=== PATIENT | female | born 1940 | race African-American/Black ===

== ENCOUNTER 2018-01-04 13:33 | Emergency (ER) | payer MEDICARE, BC ==
[~2018-01-04] VITALS: Ht 162.6 cm; Wt 58.0 kg
[2018-01-04] MEDS ORDERED: METHYLPREDNISOLONE SOD SUCC 125 MG/2 ML VIAL IV STA (16:43)
[2018-01-04] MEDS ORDERED: LEVOFLOXACIN 750MG PREMIX 150 ML IV ONE (16:45)
[2018-01-04] MEDS ORDERED: IPRATROPIUM/ALBUTEROL 0.5-3(2.5)MG/3ML NEB HHN ONE (16:45)
[2018-01-04 17:31] LABS: BASOPHILS % 1.2 % (0.0-2.0); EOSINOPHILS % 6.2 % (0.0-5.0); HEMATOCRIT. 40.6 % (36.0-48.0); HEMOGLOBIN. 13.5 g/dL (12.0-16.0); LYMPHOCYTES % 30.4 % (20.0-50.0); MEAN CORPUSCULAR HEMOGLOBIN 29.6 pg (28.0-32.0); MEAN CORPUSCULAR VOLUME 89.1 fL (81.0-99.0); MEAN PLATELET VOLUME 7.6 fl (7.4-10.4); MONOCYTES % 12.3 % (2.0-8.0); NEUTROPHILS % 49.9 % (40.0-76.0); PLATELET 414 x1000/uL (130-400); RED BLOOD CELL COUNT 4.56 mill/uL (4.2-5.4); RED CELL DISTRIBUTION WIDTH 16.1 % (11.6-14.6)
[2018-01-04 17:37] LABS: PARTIAL THROMBOPLASTIN TIME 27.5 sec (23.4-31.0); PROTHROMBIN TIME 10.7 sec (9.4-11.6)
[2018-01-04 17:38] LABS: CHLORIDE 92 mEq/L (98-107)
[2018-01-04 17:46] LABS: TROPONIN I < 0.02 ng/mL (0.00-0.04)
[2018-01-04 20:15] VITALS: BP 147/89
== END 2018-01-04 20:52 | disposition home or self-care (01) ==
LOC: ER 17:35
DX: J44.9 Chronic obstructive pulmonary disease, unspecified (principal); I10 Essential (primary) hypertension; F17.200 Nicotine dependence, unspecified, uncomplicated; Z98.890 Other specified postprocedural states
CPT/HCPCS: 36415; 71045; 80053; 83605; 83690; 84484; 85025; 85610; 85730; 87040; 94640; 96365; 96375; 99285; J1956; J2930; J7620

== ENCOUNTER 2018-08-17 13:16 | Inpatient (IN) | payer MEDICARE, BC ==
[~2018-08-17] VITALS: Ht 162.6 cm; Wt 68.0 kg
[~2018-08-17 13:16] MED LIST: AMLO10TA80 PO; ENAL20TA PO
[2018-08-17 14:56] LABS: HEMATOCRIT. 40.6 % (36.0-48.0); HEMOGLOBIN. 12.3 g/dL (12.0-16.0); MEAN CORPUSCULAR HEMOGLOBIN 22.8 pg (28.0-32.0); MEAN CORPUSCULAR VOLUME 75.3 fL (81.0-99.0); MEAN PLATELET VOLUME 7.7 fl (7.4-10.4); PLATELET 305 x1000/uL (130-400); RED CELL DISTRIBUTION WIDTH 21.4 % (11.6-14.6)
[2018-08-17 15:06] LABS: CHLORIDE 93 mEq/L (98-107)
[2018-08-17 15:08] LABS: INR 1.2; PROTHROMBIN TIME 11.7 sec (9.1-11.1)
[2018-08-17 15:36] LABS: BG BASE EXCESS -1.2 mmol/L (-2.0-2.0); BG DEOXYHEMOGLOBIN 12.6 % (0.0-5.0); BG FRACTION INSPIRED OXYGEN 40; BG HCO3 ACT 27.7 mmol/L (22.0-26.0); BG METHEMOGLOBIN 0.4 % (0.0-1.5); BG OXYGEN SATURATION 86.8 % (92.0-98.5); BG PH 7.235 (7.350-7.450); BG PO2 60.6 mmHg (75.0-100.0); BG SAMPLE SITE RIGHT RADIAL; BG TOTAL HEMOGLOBIN 13.1 g/dL (12.0-18.0); BG VENT MODE MASK - SIMPLE
[2018-08-17] MEDS ORDERED: ALBUTEROL (0.083%) 2.5MG/3ML NEB HHN STA (15:41)
[2018-08-17] MEDS ORDERED: LEVOFLOXACIN 750MG PREMIX 150 ML IV ONE (15:45)
[2018-08-17 15:59] LABS: PLATELET ESTIMATE NORMAL
[2018-08-17 17:51] VITALS: BP 91/54
[2018-08-17 18:00] VITALS: BP 105/64
[2018-08-17] MEDS ORDERED: ACETAMINOPHEN 650MG SUPP PR PRN (18:45)
[2018-08-17] MEDS ORDERED: DIPHENHYDRAMINE 50MG/ML VIAL IV PRN (18:45)
[2018-08-17] MEDS ORDERED: CLONIDINE 0.1MG TABLET PO PRN (18:45)
[2018-08-17] MEDS ORDERED: IPRATROPIUM/ALBUTEROL 0.5-3(2.5)MG/3ML NEB HHN PRN (18:45)
[2018-08-17] MEDS ORDERED: NA PHOS,M-B/NA PHOS,DI-BA ENEMA 118ML PR PRN (18:45)
[2018-08-17] MEDS ORDERED: ACETAMINOPHEN 325MG TABLET PO PRN (18:45)
[2018-08-17] MEDS ORDERED: IPRATROPIUM/ALBUTEROL 0.5-3(2.5)MG/3ML NEB INH PRN (18:45)
[2018-08-17] MEDS ORDERED: LORAZEPAM 2MG/ML CPJ IV PRN (18:45)
[2018-08-17] MEDS ORDERED: MAGNESIUM/ALUMINUM HYDROXIDE/SIMETHICONE 30ML UDC PO PRN (18:45)
[2018-08-17] MEDS ORDERED: HYDROCODONE/ACETAMINOPHEN 5/325MG TABLET PO PRN (18:45)
[2018-08-17] MEDS ORDERED: METHYLPREDNISOLONE SOD SUCC 125 MG/2 ML VIAL IV SCH (18:45)
[2018-08-17 20:00] VITALS: BP 106/58
[2018-08-17] MEDS ORDERED: LEVOFLOXACIN 500MG PREMIX 100 ML IV NR (20:30)
[2018-08-17] MEDS: ENOXAPARIN 40MG/0.4ML SYR SUBCUT SCH (20:37)
[2018-08-17] MEDS: FUROSEMIDE 40MG/4ML VIAL IVP SCH (20:39)
[2018-08-17] MEDS: FAMOTIDINE 20MG/2ML VIAL IV SCH (20:39)
[2018-08-17] MEDS: ASPIRIN 81MG TABLET PO SCH (20:39)
[2018-08-17] MEDS: MONTELUKAST SODIUM 10MG TABLET PO SCH (20:39)
[2018-08-17] MEDS: METHYLPREDNISOLONE SOD SUCC 40 MG/ML VIAL IV SCH (20:40)
[2018-08-17] MEDS: DEXT 5%/0.9% NACL 1,000 ML IV SCH (20:44)
[2018-08-17 22:00] VITALS: BP 123/85
[2018-08-17] MEDS: IPRATROPIUM/ALBUTEROL 0.5-3(2.5)MG/3ML NEB HHN SCH (22:08)
[2018-08-17 22:43] LABS: BG BASE EXCESS -0.5 mmol/L (-2.0-2.0); BG BILEVEL POS AIRWAY PRESSURE 10/5D; BG CARBOXYHEMOGLOBIN 2.6 % (0.5-1.5); BG DEOXYHEMOGLOBIN 7.8 % (0.0-5.0); BG FRACTION INSPIRED OXYGEN 50; BG HCO3 ACT 29.1 mmol/L (22.0-26.0); BG METHEMOGLOBIN 0.4 % (0.0-1.5); BG OXYHEMOGLOBIN 89.2 % (94.0-97.0); BG PCO2 74.3 mmHg (35.0-45.0); BG PH 7.211 (7.350-7.450); BG PO2 75.4 mmHg (75.0-100.0); BG SAMPLE SITE LEFT BRACHIAL; BG TIDAL VOLUME(mL) 274 mL; BG TOTAL HEMOGLOBIN 12.7 g/dL (12.0-18.0); BG VENT MODE MASK - BIPAP; BG VENT RATE 14 set
[2018-08-18] VITALS (14 sets, daily range): BP systolic 92–133; BP diastolic 55–92
[2018-08-18] MEDS: IPRATROPIUM/ALBUTEROL 0.5-3(2.5)MG/3ML NEB HHN SCH ×6 (01:19→21:41)
[2018-08-18 04:08] LABS: CLARITY URINE CLEAR (CLEAR); COLOR URINE YELLOW (YELLOW); KETONES URINE NEGATIVE (NEGATIVE); LEUKOCYTE ESTERASE URINE NEGATIVE (NEGATIVE); NITRITE URINE NEGATIVE (NEGATIVE); OCCULT BLOOD URINE TRACE (NEGATIVE); PH URINE 5.5 (4.5-8.0); PROTEIN URINE NEGATIVE (NEGATIVE); SPECIFIC GRAVITY URINE 1.014 (1.005-1.030); UROBILINOGEN URINE 0.2 E.U./dL (0.2-1.0)
[2018-08-18 04:46] LABS: *AMPHETAMINES SCREEN URINE NEGATIVE (NEGATIVE); *BARBITURATES SCREEN URINE NEGATIVE (NEGATIVE); *BENZODIAZEPINES SCREEN URINE NEGATIVE (NEGATIVE)
[2018-08-18 04:48] LABS: *COCAINE SCREEN URINE NEGATIVE (NEGATIVE); CANNABINOID URINE SCREEN NEGATIVE (NEGATIVE); METHADONE URINE SCREEN NEGATIVE (NEGATIVE); OPIATES URINE SCREEN NEGATIVE (NEGATIVE); PHENCYCLIDINE URINE SCREEN NEGATIVE (NEGATIVE)
[2018-08-18] MEDS: METHYLPREDNISOLONE SOD SUCC 40 MG/ML VIAL IV SCH ×3 (05:14→20:53)
[2018-08-18 07:20] LABS: HEMATOCRIT. 38.9 % (36.0-48.0); HEMOGLOBIN. 11.7 g/dL (12.0-16.0); MEAN CORPUSCULAR HEMOGLOBIN 22.5 pg (28.0-32.0); MEAN CORPUSCULAR VOLUME 75.1 fL (81.0-99.0); MEAN PLATELET VOLUME 8.2 fl (7.4-10.4); PLATELET 291 x1000/uL (130-400); RED BLOOD CELL COUNT 5.18 mill/uL (4.2-5.4)
[2018-08-18 08:06] LABS: CHLORIDE 91 mEq/L (98-107)
[2018-08-18 08:31] LABS: HDL CHOLESTEROL 33 mg/dL (40-59); LDL CHOLESTEROL 68 mg/dL (5-100); T4 FREE 1.27 ng/dL (0.76-1.46)
[2018-08-18] MEDS: LORATADINE 10MG TABLET PO SCH (09:20)
[2018-08-18] MEDS: ASPIRIN 81MG TABLET PO SCH (09:20)
[2018-08-18] MEDS: FAMOTIDINE 20MG/2ML VIAL IV SCH (09:20)
[2018-08-18] MEDS: FUROSEMIDE 40MG/4ML VIAL IVP SCH ×2 (09:20→20:53)
[2018-08-18 10:23] LABS: BG BASE EXCESS 5.7 mmol/L (-2.0-2.0); BG BILEVEL POS AIRWAY PRESSURE 18/5; BG CARBOXYHEMOGLOBIN 1.7 % (0.5-1.5); BG DEOXYHEMOGLOBIN 6.4 % (0.0-5.0); BG HCO3 ACT 35.8 mmol/L (22.0-26.0); BG METHEMOGLOBIN 0.5 % (0.0-1.5); BG OXYGEN SATURATION 93.5 % (92.0-98.5); BG OXYHEMOGLOBIN 91.4 % (94.0-97.0); BG PCO2 85.2 mmHg (35.0-45.0); BG PH 7.241 (7.350-7.450); BG PO2 76.8 mmHg (75.0-100.0); BG SAMPLE SITE RIGHT RADIAL; BG TOTAL HEMOGLOBIN 12.6 g/dL (12.0-18.0); BG VENT MODE MASK - BIPAP; BG VENT RATE 14 set
[2018-08-18] MEDS ORDERED: LIDOCAINE HCL/PF 1% 2ML VIAL ONE (10:23)
[2018-08-18 12:04] LABS: BG BASE EXCESS 4.2 mmol/L (-2.0-2.0); BG BILEVEL POS AIRWAY PRESSURE 18/5; BG CARBOXYHEMOGLOBIN 1.7 % (0.5-1.5); BG DEOXYHEMOGLOBIN 1.9 % (0.0-5.0); BG FRACTION INSPIRED OXYGEN 80; BG HCO3 ACT 34.3 mmol/L (22.0-26.0); BG METHEMOGLOBIN 0.5 % (0.0-1.5); BG OXYGEN SATURATION 98.1 % (92.0-98.5); BG OXYHEMOGLOBIN 95.9 % (94.0-97.0); BG PCO2 84.8 mmHg (35.0-45.0); BG PH 7.225 (7.350-7.450); BG PO2 119.7 mmHg (75.0-100.0); BG SAMPLE SITE LEFT RADIAL; BG TOTAL HEMOGLOBIN 12.3 g/dL (12.0-18.0); BG VENT MODE MASK - BIPAP
[2018-08-18 14:18] LABS: NUCLEATED RED BLOOD CELLS 3 /100 WBC; PLATELET ESTIMATE NORMAL
[2018-08-18] MEDS: DEXT 5%/0.9% NACL 1,000 ML IV SCH (15:03)
[2018-08-18] MEDS: MONTELUKAST SODIUM 10MG TABLET PO SCH (18:30)
[2018-08-18] MEDS: ENOXAPARIN 40MG/0.4ML SYR SUBCUT SCH (20:53)
[2018-08-18] MEDS: LEVOFLOXACIN 250MG PREMIX 50 ML IV SCH (21:00)
[2018-08-18] MEDS: BUDESONIDE 0.5MG/2ML NEB HHN SCH (21:40)
[2018-08-18 22:11] LABS: BG BASE EXCESS 7.5 mmol/L (-2.0-2.0); BG CARBOXYHEMOGLOBIN 1.5 % (0.5-1.5); BG DEOXYHEMOGLOBIN 14.7 % (0.0-5.0); BG FRACTION INSPIRED OXYGEN 36; BG HCO3 ACT 35.5 mmol/L (22.0-26.0); BG METHEMOGLOBIN 0.2 % (0.0-1.5); BG OXYHEMOGLOBIN 83.6 % (94.0-97.0); BG PCO2 67.9 mmHg (35.0-45.0); BG PH 7.336 (7.350-7.450); BG SAMPLE SITE RIGHT RADIAL; BG TOTAL HEMOGLOBIN 12.2 g/dL (12.0-18.0); BG VENT MODE NASAL CANNULA
[2018-08-19] VITALS (13 sets, daily range): BP systolic 112–164; BP diastolic 57–132
[2018-08-19] MEDS: IPRATROPIUM/ALBUTEROL 0.5-3(2.5)MG/3ML NEB HHN SCH ×6 (01:20→21:12)
[2018-08-19] MEDS: METHYLPREDNISOLONE SOD SUCC 40 MG/ML VIAL IV SCH ×3 (04:47→20:06)
[2018-08-19 07:28] LABS: HEMATOCRIT 36.7 % (36.0-48.0); MEAN CORPUSCULAR HEMOGLOBIN 22.6 pg (28.0-32.0); MEAN CORPUSCULAR VOLUME 75.3 fL (81.0-99.0); PLATELET 257 x1000/uL (130-400); RED BLOOD CELL COUNT 4.88 mill/uL (4.2-5.4); RED CELL DISTRIBUTION WIDTH 21.7 % (11.6-14.6)
[2018-08-19] MEDS: BUDESONIDE 0.5MG/2ML NEB HHN SCH ×2 (08:05→21:12)
[2018-08-19] MEDS: FAMOTIDINE 20MG/2ML VIAL IV SCH (08:24)
[2018-08-19] MEDS: LORATADINE 10MG TABLET PO SCH (08:24)
[2018-08-19] MEDS: FUROSEMIDE 40MG/4ML VIAL IVP SCH ×2 (08:25→20:06)
[2018-08-19] MEDS: DOCUSATE SODIUM 100MG CAPSULE PO PRN (08:25)
[2018-08-19] MEDS: ASPIRIN 81MG TABLET PO SCH (08:25)
[2018-08-19] MEDS: GUAIFENESIN 200MG/10ML SUGAR FREE UDC PO PRN (08:42)
[2018-08-19 11:04] LABS: CHLORIDE 92 mEq/L (98-107)
[2018-08-19] MEDS ORDERED: MAGNESIUM 1 G PREMIX 100 ML IV NR (12:00)
[2018-08-19] MEDS ORDERED: IOHEXOL-350 100 ML BOTTLE ONE (14:00)
[2018-08-19] MEDS: MONTELUKAST SODIUM 10MG TABLET PO SCH (17:49)
[2018-08-19] MEDS: LEVOFLOXACIN 250MG PREMIX 50 ML IV SCH (20:07)
[2018-08-19] MEDS: ENOXAPARIN 40MG/0.4ML SYR SUBCUT SCH (20:07)
[2018-08-20] VITALS (10 sets, daily range): BP systolic 127–137; BP diastolic 66–94
[2018-08-20] MEDS: METHYLPREDNISOLONE SOD SUCC 40 MG/ML VIAL IV SCH ×2 (04:30→12:32)
[2018-08-20] MEDS: IPRATROPIUM/ALBUTEROL 0.5-3(2.5)MG/3ML NEB HHN SCH ×5 (05:34→15:50)
[2018-08-20 07:11] LABS: HEMATOCRIT 39.4 % (36.0-48.0); HEMOGLOBIN 11.7 g/dL (12.0-16.0); MEAN CORPUSCULAR HEMOGLOBIN 22.2 pg (28.0-32.0); PLATELET 267 x1000/uL (130-400); RED BLOOD CELL COUNT 5.26 mill/uL (4.2-5.4); RED CELL DISTRIBUTION WIDTH 20.8 % (11.6-14.6)
[2018-08-20 07:15] LABS: CHLORIDE 89 mEq/L (98-107)
[2018-08-20] MEDS: BUDESONIDE 0.5MG/2ML NEB HHN SCH (08:32)
[2018-08-20] MEDS: ASPIRIN 81MG TABLET PO SCH (08:59)
[2018-08-20] MEDS: FUROSEMIDE 40MG/4ML VIAL IVP SCH (08:59)
[2018-08-20] MEDS: GUAIFENESIN 200MG/10ML SUGAR FREE UDC PO PRN (08:59)
[2018-08-20] MEDS: LORATADINE 10MG TABLET PO SCH (09:00)
[2018-08-20] MEDS: DOCUSATE SODIUM 100MG CAPSULE PO PRN (09:00)
[2018-08-20] MEDS: FAMOTIDINE 20MG/2ML VIAL IV SCH (09:00)
[2018-08-20 12:16] LABS: BG BASE EXCESS 8.1 mmol/L (-2.0-2.0); BG CARBOXYHEMOGLOBIN 1.4 % (0.5-1.5); BG DEOXYHEMOGLOBIN 25.8 % (0.0-5.0); BG FRACTION INSPIRED OXYGEN 21; BG HCO3 ACT 32.8 mmol/L (22.0-26.0); BG METHEMOGLOBIN 0.3 % (0.0-1.5); BG OXYGEN SATURATION 73.8 % (92.0-98.5); BG OXYHEMOGLOBIN 72.5 % (94.0-97.0); BG PCO2 45.8 mmHg (35.0-45.0); BG PH 7.473 (7.350-7.450); BG PO2 34.6 mmHg (75.0-100.0); BG SAMPLE SITE RIGHT RADIAL; BG TOTAL HEMOGLOBIN 13.3 g/dL (12.0-18.0); BG VENT MODE ROOM AIR
[2018-08-20] MEDS: MONTELUKAST SODIUM 10MG TABLET PO SCH (17:19)
[2018-09-02] MEDS ORDERED: CALC0.5C10 MT (07:30)
[2018-09-02] MEDS ORDERED: SIMV40TA5 MT (07:30)
[2018-09-02] MEDS ORDERED: LEVO75TA MT (07:30)
== END 2018-08-20 18:23 | disposition home or self-care (01) | DRG 193 ==
LOC: EDBD → ER 13:16 → EDBEDREQSVC 15:40 → EDBEDREQ 15:40 → 3WST 15:57 → EDBEDREQSVC 16:02 → EDBEDREQ 16:02 → EDBEDREQTM 16:02 → EDBEDREQSVC 16:37 → ENRESERV 16:46 → 3WST 17:44
PROVIDERS: ADMIT Internal Medicine; ATTEND Internal Medicine
PROC: 5A09357 Assistance with Respiratory Ventilation, Less than 24 Consecutive Hours, Continuous Positive Airway Pressure (ICD-10-PCS; principal; 2018-08-18)
PROC: 5A09357 Assistance with Respiratory Ventilation, Less than 24 Consecutive Hours, Continuous Positive Airway Pressure (ICD-10-PCS; 2018-08-19)
DX: J11.00 Influenza due to unidentified influenza virus with unspecified type of pneumonia (principal); J96.01 Acute respiratory failure with hypoxia; J96.02 Acute respiratory failure with hypercapnia; J44.0 Chronic obstructive pulmonary disease with (acute) lower respiratory infection; E87.2 Acidosis; J44.1 Chronic obstructive pulmonary disease with (acute) exacerbation; I82.433 Acute embolism and thrombosis of popliteal vein, bilateral; R65.10 Systemic inflammatory response syndrome (SIRS) of non-infectious origin without acute organ dysfunction; E83.42 Hypomagnesemia; E86.0 Dehydration; F17.210 Nicotine dependence, cigarettes, uncomplicated; I10 Essential (primary) hypertension; I27.20 Pulmonary hypertension, unspecified; K21.9 Gastro-esophageal reflux disease without esophagitis; R79.1 Abnormal coagulation profile; I73.9 Peripheral vascular disease, unspecified; E89.0 Postprocedural hypothyroidism; D72.829 Elevated white blood cell count, unspecified; E20.9 Hypoparathyroidism, unspecified; Z86.73 Personal history of transient ischemic attack (TIA), and cerebral infarction without residual deficits
CPT/HCPCS: 36415; 36600; 71045; 71275; 80048; 80061; 80305; 82375; 82805; 83036; 83735; 83880; 84439; 84443; 84484; 85027; 85379; 86850; 86900; 87804; 93005; 93306; 93923; 93970; 94640; 94660; 96365; 96366; 97116; 97162; 99285; J1650; J1940; J1956; J2060; J2920; J3475; J3490; J7042; J7611; J7620; J7626; Q9967

== ENCOUNTER 2018-11-20 05:39 | Inpatient (IN) | payer MEDICARE, BC ==
[~2018-11-20] VITALS: Ht 162.6 cm; Wt 63.0 kg
[2018-11-20] VITALS (9 sets, daily range): BP systolic 108–156; BP diastolic 60–90
[~2018-11-20 05:39] MED LIST changes: +CALC0.5C10 MT; -ENAL20TA PO; +LEVO75TA MT; +SIMV40TA5 MT
[2018-11-20] MEDS ORDERED: IODIXANOL 320MG/ML 100 ML BOTTLE IV ONE (08:11)
[2018-11-20] MEDS ORDERED: LIDOCAINE HCL 1% 20ML VIAL (Pyxis) INJ ONE (08:13)
[2018-11-20] MEDS ORDERED: ACETAMINOPHEN 325MG TABLET PO PRN ×2 (08:15→18:45)
[2018-11-20] MEDS ORDERED: MIDAZOLAM HCL 2 MG/2 ML VIAL ONE (08:23)
[2018-11-20] MEDS ORDERED: FENTANYL CITRATE/PF 50MCG/ML 2ML VIAL ONE (08:24)
[2018-11-20] MEDS ORDERED: IOHEXOL-300 100 ML BOTTLE ONE (08:40)
[2018-11-20] MEDS ORDERED: ENAL10TA PO (08:43)
[2018-11-20] MEDS ORDERED: CLOP75TA16 PO (09:27)
[2018-11-20] MEDS ORDERED: ALBU2.5V13 NEB (09:27)
[2018-11-20] MEDS ORDERED: CLOPIDOGREL 75MG TABLET ONE (09:37)
[2018-11-20] MEDS ORDERED: HYDROCODONE/ACETAMINOPHEN 5/325MG TABLET PO PRN ×2 (09:45→18:45)
[2018-11-20] MEDS ORDERED: MEDICATION NOT ON FORMULARY EA (Calcitriol 1 CAP) MT SCH (12:15)
[2018-11-20] MEDS ORDERED: ENALAPRIL MALEATE 10 MG PO SCH (12:15)
[2018-11-20] MEDS: LEVOTHYROXINE SODIUM 75MCG TABLET PO SCH (12:15)
[2018-11-20] MEDS: CALCITRIOL 0.25MCG CAPSULE PO SCH (13:00)
[2018-11-20] MEDS: ENALAPRIL 5MG TABLET PO SCH (14:00)
[2018-11-20] MEDS ORDERED: HEPARIN SODIUM 1,000 UNIT/1ML VIAL IV ONE (16:07)
[2018-11-20] MEDS ORDERED: DOCUSATE SODIUM 100MG CAPSULE PO PRN (18:45)
[2018-11-20] MEDS ORDERED: CLONIDINE 0.1MG TABLET PO PRN (18:45)
[2018-11-20] MEDS ORDERED: MORPHINE SULFATE 4 MG/ML CPJ (NOT FOR IM USE) IV PRN (18:45)
[2018-11-20] MEDS ORDERED: DIPHENHYDRAMINE 50MG/ML VIAL IV PRN (18:45)
[2018-11-20] MEDS ORDERED: LORAZEPAM 0.5MG TABLET PO PRN (18:45)
[2018-11-20] MEDS ORDERED: NA PHOS,M-B/NA PHOS,DI-BA ENEMA 118ML PR PRN (18:45)
[2018-11-20] MEDS ORDERED: ONDANSETRON HCL 4MG/2ML INJ IV PRN (18:45)
[2018-11-20] MEDS ORDERED: ACETAMINOPHEN 650MG SUPP PR PRN (18:45)
[2018-11-20] MEDS ORDERED: GUAIFENESIN 200MG/10ML SUGAR FREE UDC PO PRN (18:45)
[2018-11-20] MEDS ORDERED: MAGNESIUM/ALUMINUM HYDROXIDE/SIMETHICONE 30ML UDC PO PRN (18:45)
[2018-11-20] MEDS ORDERED: IPRATROPIUM/ALBUTEROL 0.5-3(2.5)MG/3ML NEB INH PRN (18:45)
[2018-11-20] MEDS: ATORVASTATIN CALCIUM 20MG TABLET PO SCH (20:39)
[2018-11-20] MEDS: SODIUM CHLORIDE 0.9% 1,000 ML IV SCH (20:39)
[2018-11-20] MEDS ORDERED: MEDICATION NOT ON FORMULARY EA (Simvastatin 1 TAB) MT SCH (21:00)
[2018-11-20 21:08] LABS: HEMATOCRIT 36.5 % (36.0-48.0); HEMOGLOBIN 11.2 g/dL (12.0-16.0); MEAN CORPUSCULAR HEMOGLOBIN 24.7 pg (28.0-32.0); MEAN CORPUSCULAR VOLUME 80.3 fL (81.0-99.0); PLATELET 217 x1000/uL (130-400); RED BLOOD CELL COUNT 4.55 mill/uL (4.2-5.4)
[2018-11-20 21:15] LABS: CHLORIDE 96 mEq/L (98-107)
[2018-11-20 21:47] LABS: CLARITY URINE CLEAR (CLEAR); COLOR URINE YELLOW (YELLOW); KETONES URINE NEGATIVE (NEGATIVE); LEUKOCYTE ESTERASE URINE NEGATIVE (NEGATIVE); NITRITE URINE NEGATIVE (NEGATIVE); OCCULT BLOOD URINE NEGATIVE (NEGATIVE); PROTEIN URINE TRACE (NEGATIVE); SPECIFIC GRAVITY URINE 1.021 (1.005-1.030)
[2018-11-20 21:59] LABS: *AMPHETAMINES SCREEN URINE NEGATIVE (NEGATIVE)
[2018-11-20 22:00] LABS: *BARBITURATES SCREEN URINE NEGATIVE (NEGATIVE); *BENZODIAZEPINES SCREEN URINE PRESUMTIVE POSITIVE (NEGATIVE); *COCAINE SCREEN URINE NEGATIVE (NEGATIVE); CANNABINOID URINE SCREEN NEGATIVE (NEGATIVE)
[2018-11-20 22:01] LABS: METHADONE URINE SCREEN NEGATIVE (NEGATIVE); OPIATES URINE SCREEN PRESUMTIVE POSITIVE (NEGATIVE); PHENCYCLIDINE URINE SCREEN NEGATIVE (NEGATIVE)
[2018-11-21] VITALS (12 sets, daily range): BP systolic 112–148; BP diastolic 48–89
[2018-11-21] MEDS: IPRATROPIUM/ALBUTEROL 0.5-3(2.5)MG/3ML NEB INH SCH ×2 (02:47→09:09)
[2018-11-21 06:55] LABS: HEMATOCRIT. 38.6 % (36.0-48.0); HEMOGLOBIN. 11.7 g/dL (12.0-16.0); MEAN CORPUSCULAR HEMOGLOBIN 24.6 pg (28.0-32.0); MEAN CORPUSCULAR VOLUME 81.1 fL (81.0-99.0); MEAN PLATELET VOLUME 8.7 fl (7.4-10.4); PLATELET 237 x1000/uL (130-400); RED BLOOD CELL COUNT 4.75 mill/uL (4.2-5.4); RED CELL DISTRIBUTION WIDTH 21.4 % (11.6-14.6)
[2018-11-21 07:34] LABS: CHLORIDE 96 mEq/L (98-107)
[2018-11-21 07:45] LABS: LDL CHOLESTEROL 79 mg/dL (5-100)
[2018-11-21 07:47] LABS: HDL CHOLESTEROL 44 mg/dL (40-59); T4 FREE 1.31 ng/dL (0.76-1.46)
[2018-11-21] MEDS: SODIUM CHLORIDE 0.9% 1,000 ML IV SCH (08:37)
[2018-11-21] MEDS ORDERED: MEDICATION NOT ON FORMULARY EA (Clopidogrel Bisulfate (Plavix) 75 MG) PO SCH (09:00)
[2018-11-21] MEDS ORDERED: CLOPIDOGREL 75MG TABLET PO SCH (09:00)
[2018-11-21] MEDS: LEVOTHYROXINE SODIUM 75MCG TABLET PO SCH (09:26)
[2018-11-21] MEDS: CALCITRIOL 0.25MCG CAPSULE PO SCH (09:27)
[2018-11-21] MEDS: CLOPIDOGREL 75MG TABLET PO SCH ×2 (09:27→09:30)
[2018-11-21] MEDS: ENALAPRIL 5MG TABLET PO SCH (09:27)
[2018-11-21 13:18] LABS: PLATELET ESTIMATE NORMAL
[2018-11-21] MEDS ORDERED: LEVOFLOXACIN 500MG TABLET PO NR (20:00)
[2018-11-21] MEDS ORDERED: LEVOFLOXACIN 500MG PREMIX 100 ML IV SCH (20:00)
[2018-11-21] MEDS: ATORVASTATIN CALCIUM 20MG TABLET PO SCH (20:12)
[2018-11-22] VITALS (11 sets, daily range): BP systolic 104–144; BP diastolic 47–91
[2018-11-22] MEDS: ENALAPRIL 5MG TABLET PO SCH (08:53)
[2018-11-22] MEDS: CALCITRIOL 0.25MCG CAPSULE PO SCH (08:54)
[2018-11-22] MEDS: CLOPIDOGREL 75MG TABLET PO SCH (08:54)
[2018-11-22] MEDS: LEVOTHYROXINE SODIUM 75MCG TABLET PO SCH (08:54)
[2018-11-22] MEDS: IPRATROPIUM/ALBUTEROL 0.5-3(2.5)MG/3ML NEB INH SCH ×2 (09:34→14:18)
[2018-11-22] MEDS ORDERED: LEVOFLOXACIN 250MG TABLET PO SCH (11:00)
[2018-11-22] MEDS ORDERED: POTASSIUM CHLORIDE 10MEQ TABLET SR PO SCH (17:00)
[2018-11-22] MEDS ORDERED: LEVOFLOXACIN 250MG PREMIX 50 ML IV SCH (20:00)
== END 2018-11-22 18:23 | disposition home or self-care (01) | DRG 271 ==
LOC: CCL 05:39 → 3WST 05:40
PROVIDERS: ADMIT Internal Medicine; ATTEND Surgery Vascular Surgery
PROC: B41D1ZZ Fluoroscopy of Aorta and Bilateral Lower Extremity Arteries using Low Osmolar Contrast (ICD-10-PCS; principal; 2018-11-20)
PROC: 04CK3ZZ Extirpation of Matter from Right Femoral Artery, Percutaneous Approach (ICD-10-PCS; 2018-11-20)
PROC: 04CM3ZZ Extirpation of Matter from Right Popliteal Artery, Percutaneous Approach (ICD-10-PCS; 2018-11-20)
PROC: 047T3ZZ Dilation of Right Peroneal Artery, Percutaneous Approach (ICD-10-PCS; 2018-11-20)
PROC: 047M3DZ Dilation of Right Popliteal Artery with Intraluminal Device, Percutaneous Approach (ICD-10-PCS; 2018-11-20)
PROC: 047K0ZZ Dilation of Right Femoral Artery, Open Approach (ICD-10-PCS; 2018-11-20)
DX: I70.201 Unspecified atherosclerosis of native arteries of extremities, right leg (principal); J44.1 Chronic obstructive pulmonary disease with (acute) exacerbation; I70.92 Chronic total occlusion of artery of the extremities; J84.9 Interstitial pulmonary disease, unspecified; E78.5 Hyperlipidemia, unspecified; I27.20 Pulmonary hypertension, unspecified; I10 Essential (primary) hypertension; E89.0 Postprocedural hypothyroidism; M25.512 Pain in left shoulder; J44.9 Chronic obstructive pulmonary disease, unspecified; Z86.73 Personal history of transient ischemic attack (TIA), and cerebral infarction without residual deficits; Z87.891 Personal history of nicotine dependence; Z99.81 Dependence on supplemental oxygen
CPT/HCPCS: 36415; 37227; 71045; 73030; 75710; 80048; 80061; 80305; 84439; 84443; 85027; 85347; 97162; C1725; C1760; C1769; C1885; C1887; C1893; C1894; J1644; J1956; J2250; J3010; J3490; J7030; J7620; Q9967

== ENCOUNTER 2019-02-06 09:46 | Inpatient (IN) | payer MEDICARE, BC ==
[~2019-02-06] VITALS: Ht 162.6 cm; Wt 61.2 kg
[~2019-02-06 09:46] MED LIST changes: +ALBU2.5V13 NEB; -AMLO10TA80 PO; +CLOP75TA16 PO; +ENAL10TA PO
[2019-02-06] MEDS ORDERED: FURO-151 PO (10:19)
[2019-02-06] MEDS ORDERED: FUROSEMIDE 40MG/4ML VIAL IVP ONE (10:45)
[2019-02-06 11:03] LABS: BASOPHILS % 0.9 % (0.0-2.0); EOSINOPHILS % 1.4 % (0.0-5.0); HEMATOCRIT. 40.9 % (36.0-48.0); HEMOGLOBIN. 12.5 g/dL (12.0-16.0); MEAN CORPUSCULAR HEMOGLOBIN 24.6 pg (28.0-32.0); MEAN CORPUSCULAR VOLUME 80.5 fL (81.0-99.0); MEAN PLATELET VOLUME 8.4 fl (7.4-10.4); MONOCYTES % 10.2 % (2.0-8.0); NEUTROPHILS % 68.5 % (40.0-76.0); PLATELET 222 x1000/uL (130-400); RED BLOOD CELL COUNT 5.08 mill/uL (4.2-5.4); RED CELL DISTRIBUTION WIDTH 19.8 % (11.6-14.6)
[2019-02-06 11:10] LABS: CHLORIDE 93 mEq/L (98-107)
[2019-02-06] MEDS ORDERED: HYDROCODONE/ACETAMINOPHEN 5/325MG TABLET PO ONE (12:15)
[2019-02-06] MEDS ORDERED: POTASSIUM CHLORIDE 20MEQ TABLET SR PO ONE (12:45)
[2019-02-06] MEDS ORDERED: MAGNESIUM/ALUMINUM HYDROXIDE/SIMETHICONE 30ML UDC PO PRN (13:45)
[2019-02-06] MEDS ORDERED: SIMETHICONE 80MG TABLET CHEW PO PRN (13:45)
[2019-02-06] MEDS ORDERED: ONDANSETRON HCL 4MG/2ML INJ IV PRN (13:45)
[2019-02-06] MEDS ORDERED: HYDROCODONE/ACETAMINOPHEN 5/325MG TABLET PO PRN (13:45)
[2019-02-06] MEDS ORDERED: NA PHOS,M-B/NA PHOS,DI-BA ENEMA 118ML PR PRN (13:45)
[2019-02-06] MEDS ORDERED: CLONIDINE 0.1MG TABLET PO PRN (13:45)
[2019-02-06] MEDS ORDERED: ACETAMINOPHEN 325MG TABLET PO PRN (13:45)
[2019-02-06] MEDS ORDERED: DOCUSATE SODIUM 100MG CAPSULE PO PRN (13:45)
[2019-02-06] MEDS ORDERED: GUAIFENESIN 200MG/10ML SUGAR FREE UDC PO PRN (13:45)
[2019-02-06] MEDS ORDERED: ACETAMINOPHEN 650MG SUPP PR PRN (13:45)
[2019-02-06] MEDS ORDERED: DIPHENHYDRAMINE 50MG/ML VIAL IV PRN (13:45)
[2019-02-06] MEDS ORDERED: IPRATROPIUM/ALBUTEROL 0.5-3(2.5)MG/3ML NEB INH PRN (13:45)
[2019-02-06] MEDS ORDERED: LORAZEPAM 0.5MG TABLET PO PRN (13:45)
[2019-02-06 14:00] VITALS: BP 118/64
[2019-02-06 14:31] LABS: PROTHROMBIN TIME 10.7 sec (9.6-11.0)
[2019-02-06 14:45] LABS: CLARITY URINE CLOUDY (CLEAR); COLOR URINE YELLOW (YELLOW); KETONES URINE NEGATIVE (NEGATIVE); LEUKOCYTE ESTERASE URINE NEGATIVE (NEGATIVE); NITRITE URINE NEGATIVE (NEGATIVE); OCCULT BLOOD URINE NEGATIVE (NEGATIVE); PH URINE 7.5 (4.5-8.0); PROTEIN URINE NEGATIVE (NEGATIVE); UROBILINOGEN URINE 0.2 E.U./dL (0.2-1.0)
[2019-02-06 14:50] VITALS: BP 118/64
[2019-02-06 15:07] LABS: *AMPHETAMINES SCREEN URINE NEGATIVE (NEGATIVE); *BARBITURATES SCREEN URINE NEGATIVE (NEGATIVE); *BENZODIAZEPINES SCREEN URINE NEGATIVE (NEGATIVE); *COCAINE SCREEN URINE NEGATIVE (NEGATIVE); CANNABINOID URINE SCREEN NEGATIVE (NEGATIVE); METHADONE URINE SCREEN NEGATIVE (NEGATIVE); PHENCYCLIDINE URINE SCREEN NEGATIVE (NEGATIVE)
[2019-02-06 15:08] LABS: OPIATES URINE SCREEN NEGATIVE (NEGATIVE)
[2019-02-06] MEDS: ENOXAPARIN 40MG/0.4ML SYR SUBCUT SCH (15:47)
[2019-02-06] MEDS: ASPIRIN 81MG EC TABLET PO SCH (15:47)
[2019-02-06 20:00] VITALS: BP 105/62
[2019-02-07] VITALS: BP 107/67
[2019-02-07] MEDS: IPRATROPIUM/ALBUTEROL 0.5-3(2.5)MG/3ML NEB HHN SCH ×4 (01:14→20:19)
[2019-02-07 02:52] LABS: BG BASE EXCESS 18.6 mmol/L (-2.0-2.0); BG CARBOXYHEMOGLOBIN 1.5 % (0.5-1.5); BG DEOXYHEMOGLOBIN 8.3 % (0.0-5.0); BG FRACTION INSPIRED OXYGEN 28; BG HCO3 ACT 48.7 mmol/L (22.0-26.0); BG METHEMOGLOBIN 0.3 % (0.0-1.5); BG OXYGEN SATURATION 91.5 % (92.0-98.5); BG OXYHEMOGLOBIN 89.9 % (94.0-97.0); BG PCO2 91.7 mmHg (35.0-45.0); BG PH 7.343 (7.350-7.450); BG PO2 68.7 mmHg (75.0-100.0); BG SAMPLE SITE RIGHT RADIAL; BG TOTAL HEMOGLOBIN 12.4 g/dL (12.0-18.0); BG VENT MODE NASAL CANNULA
[2019-02-07 04:00] VITALS: BP 112/64
[2019-02-07 06:03] LABS: HEMATOCRIT. 37.7 % (36.0-48.0); HEMOGLOBIN. 11.5 g/dL (12.0-16.0); MEAN CORPUSCULAR HEMOGLOBIN 24.6 pg (28.0-32.0); MEAN CORPUSCULAR VOLUME 80.8 fL (81.0-99.0); MEAN PLATELET VOLUME 8.6 fl (7.4-10.4); PLATELET 199 x1000/uL (130-400); RED BLOOD CELL COUNT 4.66 mill/uL (4.2-5.4); RED CELL DISTRIBUTION WIDTH 19.2 % (11.6-14.6)
[2019-02-07 06:30] LABS: CHLORIDE 95 mEq/L (98-107)
[2019-02-07 06:45] LABS: HDL CHOLESTEROL 43 mg/dL (40-59); LDL CHOLESTEROL 72 mg/dL (5-100)
[2019-02-07] MEDS: BUDESONIDE 0.5MG/2ML NEB HHN SCH ×2 (07:45→20:20)
[2019-02-07 08:00] VITALS: BP 122/65
[2019-02-07] MEDS: ASPIRIN 81MG EC TABLET PO SCH (09:01)
[2019-02-07] MEDS: ENOXAPARIN 40MG/0.4ML SYR SUBCUT SCH (09:02)
[2019-02-07] MEDS: FUROSEMIDE 40MG/4ML VIAL IVP SCH (10:29)
[2019-02-07] MEDS ORDERED: LEVOFLOXACIN 500MG PREMIX 100 ML IV NR (10:30)
[2019-02-07 11:33] LABS: CREATINE KINASE MB FRACTION 1.7 ng/mL (0.5-3.6)
[2019-02-07 12:00] VITALS: BP 125/75
[2019-02-07] MEDS: GABAPENTIN 100MG CAPSULE PO SCH ×2 (13:20→22:12)
[2019-02-07] MEDS ORDERED: LORAZEPAM 0.5MG TABLET PO PRN (13:45)
[2019-02-07 16:00] VITALS: BP 127/70
[2019-02-07] MEDS ORDERED: IOHEXOL-350 100 ML BOTTLE ONE (16:00)
[2019-02-07 20:00] VITALS: BP 119/62
[2019-02-07 20:54] LABS: PLATELET ESTIMATE NORMAL
[2019-02-08] VITALS: BP 145/51
[2019-02-08] MEDS: IPRATROPIUM/ALBUTEROL 0.5-3(2.5)MG/3ML NEB HHN SCH ×6 (00:01→21:37)
[2019-02-08 04:00] VITALS: BP 135/73
[2019-02-08 06:19] LABS: HEMATOCRIT 37.2 % (36.0-48.0); HEMOGLOBIN 11.2 g/dL (12.0-16.0); MEAN CORPUSCULAR HEMOGLOBIN 24.4 pg (28.0-32.0); MEAN CORPUSCULAR VOLUME 80.7 fL (81.0-99.0); PLATELET 183 x1000/uL (130-400); RED BLOOD CELL COUNT 4.61 mill/uL (4.2-5.4); RED CELL DISTRIBUTION WIDTH 19.8 % (11.6-14.6)
[2019-02-08 07:31] LABS: CHLORIDE 95 mEq/L (98-107)
[2019-02-08] MEDS: BUDESONIDE 0.5MG/2ML NEB HHN SCH ×2 (07:42→21:37)
[2019-02-08 08:00] VITALS: BP 128/62
[2019-02-08] MEDS ORDERED: CLOPIDOGREL 75MG TABLET PO SCH (09:00)
[2019-02-08 09:51] LABS: BG BASE EXCESS 20.4 mmol/L (-2.0-2.0); BG CARBOXYHEMOGLOBIN 1.1 % (0.5-1.5); BG DEOXYHEMOGLOBIN 7.5 % (0.0-5.0); BG FRACTION INSPIRED OXYGEN 28; BG HCO3 ACT 49.6 mmol/L (22.0-26.0); BG METHEMOGLOBIN 0.3 % (0.0-1.5); BG OXYGEN SATURATION 92.4 % (92.0-98.5); BG OXYHEMOGLOBIN 91.1 % (94.0-97.0); BG PCO2 82.7 mmHg (35.0-45.0); BG PH 7.396 (7.350-7.450); BG PO2 64.4 mmHg (75.0-100.0); BG SAMPLE SITE LEFT RADIAL; BG TOTAL HEMOGLOBIN 12.5 g/dL (12.0-18.0); BG VENT MODE NASAL CANNULA
[2019-02-08] MEDS: ENOXAPARIN 40MG/0.4ML SYR SUBCUT SCH (10:04)
[2019-02-08] MEDS: ASPIRIN 81MG EC TABLET PO SCH (10:04)
[2019-02-08] MEDS: FUROSEMIDE 40MG/4ML VIAL IVP SCH (10:04)
[2019-02-08] MEDS: GABAPENTIN 100MG CAPSULE PO SCH ×2 (10:04→18:36)
[2019-02-08 12:00] VITALS: BP 120/65
[2019-02-08] MEDS: LEVOFLOXACIN 250MG PREMIX 50 ML IV SCH (12:35)
[2019-02-08] MEDS: CLOPIDOGREL 75MG TABLET PO SCH (18:36)
[2019-02-08 20:00] VITALS: BP 98/47
[2019-02-09] VITALS: BP 102/54
[2019-02-09] MEDS: IPRATROPIUM/ALBUTEROL 0.5-3(2.5)MG/3ML NEB HHN SCH ×6 (02:13→20:20)
[2019-02-09 04:00] VITALS: BP 111/48
[2019-02-09 04:37] LABS: *AMPHETAMINES SCREEN URINE NEGATIVE (NEGATIVE); *BARBITURATES SCREEN URINE NEGATIVE (NEGATIVE); *BENZODIAZEPINES SCREEN URINE NEGATIVE (NEGATIVE); *COCAINE SCREEN URINE NEGATIVE (NEGATIVE); METHADONE URINE SCREEN NEGATIVE (NEGATIVE); OPIATES URINE SCREEN PRESUMTIVE POSITIVE (NEGATIVE)
[2019-02-09 04:38] LABS: CANNABINOID URINE SCREEN NEGATIVE (NEGATIVE); PHENCYCLIDINE URINE SCREEN NEGATIVE (NEGATIVE)
[2019-02-09 06:35] LABS: MEAN CORPUSCULAR HEMOGLOBIN 24.8 pg (28.0-32.0); MEAN CORPUSCULAR VOLUME 81.4 fL (81.0-99.0); PLATELET 178 x1000/uL (130-400); RED BLOOD CELL COUNT 4.43 mill/uL (4.2-5.4); RED CELL DISTRIBUTION WIDTH 19.9 % (11.6-14.6)
[2019-02-09 07:06] LABS: CHLORIDE 94 mEq/L (98-107)
[2019-02-09 07:15] LABS: LDL CHOLESTEROL 76 mg/dL (5-100)
[2019-02-09 07:17] LABS: HDL CHOLESTEROL 43 mg/dL (40-59)
[2019-02-09 08:00] VITALS: BP 112/54
[2019-02-09] MEDS: BUDESONIDE 0.5MG/2ML NEB HHN SCH ×2 (08:03→20:20)
[2019-02-09] MEDS: ASPIRIN 81MG EC TABLET PO SCH (10:38)
[2019-02-09] MEDS: GABAPENTIN 100MG CAPSULE PO SCH ×2 (10:38→19:16)
[2019-02-09] MEDS: FUROSEMIDE 40MG/4ML VIAL IVP SCH (10:38)
[2019-02-09] MEDS: CLOPIDOGREL 75MG TABLET PO SCH (10:54)
[2019-02-09] MEDS: LEVOFLOXACIN 250MG PREMIX 50 ML IV SCH (10:54)
[2019-02-09] MEDS: ENOXAPARIN 40MG/0.4ML SYR SUBCUT SCH (10:54)
[2019-02-09] MEDS ORDERED: POTASSIUM CHLORIDE 20MEQ TABLET SR PO NR (11:30)
[2019-02-09 12:12] VITALS: BP 123/64
[2019-02-09] MEDS ORDERED: ACETAMINOPHEN WITH CODEINE 300/30MG TABLET PO PRN (14:15)
[2019-02-09] MEDS ORDERED: IOHEXOL-350 100 ML BOTTLE ONE (14:59)
[2019-02-09 16:00] VITALS: BP 125/68
[2019-02-09 20:00] VITALS: BP 102/59
[2019-02-10] VITALS (7 sets, daily range): BP systolic 113–126; BP diastolic 62–74
[2019-02-10] MEDS: IPRATROPIUM/ALBUTEROL 0.5-3(2.5)MG/3ML NEB HHN SCH ×4 (00:59→15:30)
[2019-02-10 06:41] LABS: HEMATOCRIT 34.3 % (36.0-48.0); HEMOGLOBIN 10.6 g/dL (12.0-16.0); MEAN CORPUSCULAR HEMOGLOBIN 24.7 pg (28.0-32.0); MEAN CORPUSCULAR VOLUME 79.8 fL (81.0-99.0); PLATELET 167 x1000/uL (130-400); RED CELL DISTRIBUTION WIDTH 19.5 % (11.6-14.6)
[2019-02-10 07:10] LABS: CHLORIDE 93 mEq/L (98-107)
[2019-02-10] MEDS ORDERED: POTASSIUM CHLORIDE 20MEQ TABLET SR PO SCH (09:00)
[2019-02-10] MEDS: GABAPENTIN 100MG CAPSULE PO SCH ×2 (10:27→18:28)
[2019-02-10] MEDS: FUROSEMIDE 40MG/4ML VIAL IVP SCH (10:27)
[2019-02-10] MEDS: ASPIRIN 81MG EC TABLET PO SCH (10:28)
[2019-02-10] MEDS: CLOPIDOGREL 75MG TABLET PO SCH (10:28)
[2019-02-10] MEDS: ENOXAPARIN 40MG/0.4ML SYR SUBCUT SCH (10:33)
[2019-02-10] MEDS: LEVOFLOXACIN 250MG PREMIX 50 ML IV SCH (11:32)
== END 2019-02-10 22:02 | disposition home or self-care (01) | DRG 193 ==
LOC: ER 09:46 → 5WST 12:26 → EDBEDREQ 12:35 → ENRESERV 13:04
PROVIDERS: ADMIT Internal Medicine; ATTEND Internal Medicine
PROC: 5A09357 Assistance with Respiratory Ventilation, Less than 24 Consecutive Hours, Continuous Positive Airway Pressure (ICD-10-PCS; principal; 2019-02-07)
DX: J18.1 Lobar pneumonia, unspecified organism (principal); J96.22 Acute and chronic respiratory failure with hypercapnia; J44.0 Chronic obstructive pulmonary disease with (acute) lower respiratory infection; J44.1 Chronic obstructive pulmonary disease with (acute) exacerbation; E46 Unspecified protein-calorie malnutrition; E78.00 Pure hypercholesterolemia, unspecified; I08.2 Rheumatic disorders of both aortic and tricuspid valves; G57.90 Unspecified mononeuropathy of unspecified lower limb; I70.203 Unspecified atherosclerosis of native arteries of extremities, bilateral legs; I45.10 Unspecified right bundle-branch block; I10 Essential (primary) hypertension; R74.8 Abnormal levels of other serum enzymes; E89.0 Postprocedural hypothyroidism; F17.210 Nicotine dependence, cigarettes, uncomplicated; E87.70 Fluid overload, unspecified; I27.20 Pulmonary hypertension, unspecified; Z86.73 Personal history of transient ischemic attack (TIA), and cerebral infarction without residual deficits; Z99.81 Dependence on supplemental oxygen; Z68.23 Body mass index [BMI] 23.0-23.9, adult; Z79.02 Long term (current) use of antithrombotics/antiplatelets; Z79.899 Other long term (current) drug therapy; Z95.820 Peripheral vascular angioplasty status with implants and grafts
CPT/HCPCS: 36415; 36600; 71045; 71275; 75635; 80048; 80061; 80305; 82375; 82550; 82553; 82805; 83735; 83880; 84443; 84484; 85027; 85379; 87804; 93005; 93306; 93923; 93970; 94640; 97116; 97162; 99285; J1650; J1940; J1956; J7050; J7620; J7626; Q9967

== ENCOUNTER 2019-10-16 15:29 | Emergency (ER) | payer MEDICARE, BC ==
[~2019-10-16] VITALS: Ht 162.6 cm; Wt 59.0 kg
[~2019-10-16 15:29] MED LIST changes: -CLOP75TA16 PO; +CLOP75TA4 PO; -ENAL10TA PO; +FAMO-135 PO; +FURO-151 PO; +LEVO500T2 PO; +P20 MT; +P20 PO; +POTA20TA82 MT; +PRED10TA MT
[2019-10-16 19:42] VITALS: BP 133/87
== END 2019-10-16 21:33 | disposition home or self-care (01) ==
LOC: ER 15:29
DX: R60.0 Localized edema (principal); L03.116 Cellulitis of left lower limb; L03.115 Cellulitis of right lower limb; F17.290 Nicotine dependence, other tobacco product, uncomplicated; J44.9 Chronic obstructive pulmonary disease, unspecified; Z90.89 Acquired absence of other organs; Z79.899 Other long term (current) drug therapy
CPT/HCPCS: 99283

== ENCOUNTER 2019-10-22 08:52 | Inpatient (IN) | payer MEDICARE, BC ==
[~2019-10-22] VITALS: Ht 162.6 cm; Wt 64.7 kg
[2019-10-22] MEDS ORDERED: HYDROCODONE/ACETAMINOPHEN 5/325MG TABLET PO ONE (09:45)
[2019-10-22 10:32] LABS: BASOPHILS % 0.5 % (0.0-2.0); EOSINOPHILS % 0.2 % (0.0-5.0); HEMATOCRIT. 42.7 % (36.0-48.0); HEMOGLOBIN. 13.3 g/dL (12.0-16.0); LYMPHOCYTES % 10.4 % (20.0-50.0); MEAN CORPUSCULAR HEMOGLOBIN 27.1 pg (28.0-32.0); MEAN CORPUSCULAR VOLUME 87.1 fL (81.0-99.0); MEAN PLATELET VOLUME 9.4 fl (7.4-10.4); MONOCYTES % 9.7 % (2.0-8.0); NEUTROPHILS % 79.2 % (40.0-76.0); PLATELET 173 x1000/uL (130-400); RED CELL DISTRIBUTION WIDTH 19.2 % (11.6-14.6)
[2019-10-22 10:38] LABS: INR 1.1; PROTHROMBIN TIME 11.7 sec (9.6-11.0)
[2019-10-22 10:41] LABS: CHLORIDE 98 mEq/L (98-107)
[2019-10-22] MEDS ORDERED: ENOXAPARIN 60MG/0.6ML SYR SUBCUT ONE (12:15)
[2019-10-22] MEDS ORDERED: IOHEXOL-350 100 ML BOTTLE ONE (13:08)
[2019-10-22 14:01] LABS: CLARITY URINE CLEAR (CLEAR); COLOR URINE YELLOW (YELLOW); KETONES URINE NEGATIVE (NEGATIVE); LEUKOCYTE ESTERASE URINE NEGATIVE (NEGATIVE); NITRITE URINE NEGATIVE (NEGATIVE); OCCULT BLOOD URINE NEGATIVE (NEGATIVE); PH URINE 5.5 (4.5-8.0); PROTEIN URINE 2+ (NEGATIVE); SPECIFIC GRAVITY URINE 1.079 (1.005-1.030); UROBILINOGEN URINE 0.2 E.U./dL (0.2-1.0)
[2019-10-22 15:00] VITALS: BP 114/62
[2019-10-22 16:00] VITALS: BP 102/58
[2019-10-22] MEDS ORDERED: ONDANSETRON HCL 4MG/2ML INJ IV PRN (16:00)
[2019-10-22] MEDS ORDERED: IPRATROPIUM/ALBUTEROL 0.5-3(2.5)MG/3ML NEB HHN PRN (16:00)
[2019-10-22 20:00] VITALS: BP 105/85
[2019-10-22] MEDS ORDERED: HYDROMORPHONE HCL/PF 2MG/ML CPJ IV PRN (22:00)
[2019-10-22] MEDS ORDERED: HYDROCODONE/APAP 7.5/325MG 1 TAB TABLET PO PRN (22:00)
[2019-10-22] MEDS: ENOXAPARIN 60MG/0.6ML SYR SUBCUT SCH (22:25)
[2019-10-23] VITALS (8 sets, daily range): BP systolic 106–147; BP diastolic 53–78
[2019-10-23 06:24] LABS: HEMATOCRIT. 39.9 % (36.0-48.0); HEMOGLOBIN. 12.4 g/dL (12.0-16.0); MEAN CORPUSCULAR VOLUME 86.9 fL (81.0-99.0); MEAN PLATELET VOLUME 9.2 fl (7.4-10.4); PLATELET 156 x1000/uL (130-400); RED BLOOD CELL COUNT 4.59 mill/uL (4.2-5.4); RED CELL DISTRIBUTION WIDTH 19.1 % (11.6-14.6)
[2019-10-23 06:36] LABS: CHLORIDE 95 mEq/L (98-107)
[2019-10-23 06:43] LABS: LDL CHOLESTEROL 93 mg/dL (5-100)
[2019-10-23 06:44] LABS: HDL CHOLESTEROL 38 mg/dL (40-59)
[2019-10-23] MEDS: ASPIRIN 81MG EC TABLET PO SCH (10:03)
[2019-10-23] MEDS: ENOXAPARIN 60MG/0.6ML SYR SUBCUT SCH ×2 (10:03→21:32)
[2019-10-23] MEDS ORDERED: ACETAMINOPHEN 325MG TABLET PO PRN (10:30)
[2019-10-23] MEDS: FUROSEMIDE 40MG/4ML VIAL IVP SCH (12:41)
[2019-10-23] MEDS: GABAPENTIN 100MG CAPSULE PO SCH (21:31)
[2019-10-23] MEDS: ATORVASTATIN CALCIUM 40MG TABLET PO SCH (21:32)
[2019-10-24 04:00] VITALS: BP 108/62
[2019-10-24] MEDS: LEVOTHYROXINE SODIUM 75MCG TABLET PO SCH (05:22)
[2019-10-24] MEDS: GABAPENTIN 100MG CAPSULE PO SCH ×3 (05:22→20:51)
[2019-10-24 07:49] LABS: HEMATOCRIT. 38.2 % (36.0-48.0); HEMOGLOBIN. 11.8 g/dL (12.0-16.0); MEAN CORPUSCULAR HEMOGLOBIN 27.1 pg (28.0-32.0); MEAN CORPUSCULAR VOLUME 87.6 fL (81.0-99.0); MEAN PLATELET VOLUME 9.1 fl (7.4-10.4); PLATELET 142 x1000/uL (130-400); RED BLOOD CELL COUNT 4.36 mill/uL (4.2-5.4)
[2019-10-24 07:55] LABS: CHLORIDE 95 mEq/L (98-107)
[2019-10-24 08:00] VITALS: BP 119/70
[2019-10-24 08:04] LABS: CREATINE KINASE 55 IU/L (26-192)
[2019-10-24 08:08] LABS: CREATINE KINASE MB FRACTION 3.1 ng/mL (0.5-3.6)
[2019-10-24 08:54] LABS: PLATELET ESTIMATE NORMAL
[2019-10-24] MEDS: BUDESONIDE 0.5MG/2ML NEB HHN SCH ×3 (08:56→20:11)
[2019-10-24] MEDS: FUROSEMIDE 40MG/4ML VIAL IVP SCH (09:01)
[2019-10-24] MEDS: ASPIRIN 81MG EC TABLET PO SCH (09:01)
[2019-10-24] MEDS: ENOXAPARIN 60MG/0.6ML SYR SUBCUT SCH ×2 (11:44→23:22)
[2019-10-24 12:00] VITALS: BP 118/67
[2019-10-24 12:54] LABS: NUCLEATED RED BLOOD CELLS 1 /100 WBC; PLATELET ESTIMATE NORMAL
[2019-10-24 14:26] LABS: BG BASE EXCESS 13.8 mmol/L (-2.0-2.0); BG CARBOXYHEMOGLOBIN 1.4 % (0.5-1.5); BG HCO3 ACT 43.9 mmol/L (22.0-26.0); BG METHEMOGLOBIN 0.4 % (0.0-1.5); BG OXYGEN SATURATION 92.9 % (92.0-98.5); BG OXYHEMOGLOBIN 91.2 % (94.0-97.0); BG PCO2 90.5 mmHg (35.0-45.0); BG PH 7.304 (7.350-7.450); BG PO2 73.3 mmHg (75.0-100.0); BG SAMPLE SITE RIGHT BRACHIAL; BG TOTAL HEMOGLOBIN 12.5 g/dL (12.0-18.0); BG VENT MODE NASAL CANNULA
[2019-10-24 16:00] VITALS: BP 123/66
[2019-10-24 20:00] VITALS: BP 105/56
[2019-10-24] MEDS: ATORVASTATIN CALCIUM 40MG TABLET PO SCH (20:51)
[2019-10-25] VITALS (12 sets, daily range): BP systolic 105–136; BP diastolic 47–74
[2019-10-25] MEDS ORDERED: SODIUM CHLORIDE 0.45% 1,000 ML IV ONE ×2 (05:00→10:45)
[2019-10-25] MEDS: GABAPENTIN 100MG CAPSULE PO SCH ×3 (06:16→21:26)
[2019-10-25] MEDS: LEVOTHYROXINE SODIUM 75MCG TABLET PO SCH (06:16)
[2019-10-25 07:12] LABS: HEMATOCRIT. 38.9 % (36.0-48.0); MEAN CORPUSCULAR HEMOGLOBIN 26.8 pg (28.0-32.0); MEAN PLATELET VOLUME 9.2 fl (7.4-10.4); PLATELET 139 x1000/uL (130-400); RED BLOOD CELL COUNT 4.48 mill/uL (4.2-5.4); RED CELL DISTRIBUTION WIDTH 18.9 % (11.6-14.6)
[2019-10-25 08:06] LABS: CHLORIDE 95 mEq/L (98-107)
[2019-10-25] MEDS: ASPIRIN 81MG EC TABLET PO SCH (08:15)
[2019-10-25] MEDS: FUROSEMIDE 40MG/4ML VIAL IVP SCH (08:23)
[2019-10-25] MEDS ORDERED: ASPIRIN/SOD BICARB/CITRIC ACID 324MG TAB EFF ONE (08:43)
[2019-10-25] MEDS ORDERED: LIDOCAINE HCL 1% 20ML VIAL (Pyxis) INJ ONE (08:45)
[2019-10-25] MEDS ORDERED: IODIXANOL 320MG/ML 100 ML BOTTLE IV ONE ×2 (08:46→09:58)
[2019-10-25] MEDS: BUDESONIDE 0.5MG/2ML NEB HHN SCH ×2 (08:56→20:40)
[2019-10-25] MEDS ORDERED: MIDAZOLAM HCL 2 MG/2 ML VIAL ONE (08:58)
[2019-10-25] MEDS ORDERED: FENTANYL CITRATE/PF 50MCG/ML 2ML VIAL ONE (08:58)
[2019-10-25] MEDS ORDERED: IOHEXOL-300 100 ML BOTTLE ONE (09:30)
[2019-10-25] MEDS ORDERED: CLOPIDOGREL 75MG TABLET ONE (10:41)
[2019-10-25] MEDS ORDERED: MORPHINE SULFATE 2 MG/ML CPJ (NOT FOR IM USE) IV PRN (10:45)
[2019-10-25] MEDS ORDERED: CLOPIDOGREL 75MG TABLET PO SCH (10:45)
[2019-10-25] MEDS ORDERED: ONDANSETRON HCL 4MG/2ML INJ IV PRN (10:45)
[2019-10-25] MEDS ORDERED: ATROPINE SULFATE 1MG/10ML SYR IV PRN (10:45)
[2019-10-25] MEDS ORDERED: ACETAMINOPHEN 325MG TABLET PO PRN (10:45)
[2019-10-25] MEDS: SILDENAFIL CITRATE 20MG TABLET PO SCH (17:53)
[2019-10-25] MEDS: ATORVASTATIN CALCIUM 40MG TABLET PO SCH (20:51)
[2019-10-26] VITALS (10 sets, daily range): BP systolic 105–125; BP diastolic 57–71
[2019-10-26 05:51] LABS: CHLORIDE 93 mEq/L (98-107)
[2019-10-26] MEDS: GABAPENTIN 100MG CAPSULE PO SCH ×2 (06:20→13:35)
[2019-10-26] MEDS: LEVOTHYROXINE SODIUM 75MCG TABLET PO SCH (06:20)
[2019-10-26 06:30] LABS: BASOPHILS % 0.4 % (0.0-2.0); EOSINOPHILS % 0.2 % (0.0-5.0); HEMATOCRIT. 39.9 % (36.0-48.0); HEMOGLOBIN. 12.3 g/dL (12.0-16.0); LYMPHOCYTES % 9.3 % (20.0-50.0); MEAN CORPUSCULAR VOLUME 87.3 fL (81.0-99.0); MEAN PLATELET VOLUME 9.2 fl (7.4-10.4); MONOCYTES % 12.9 % (2.0-8.0); NEUTROPHILS % 77.2 % (40.0-76.0); PLATELET 138 x1000/uL (130-400); RED BLOOD CELL COUNT 4.57 mill/uL (4.2-5.4)
[2019-10-26] MEDS: SILDENAFIL CITRATE 20MG TABLET PO SCH ×2 (08:38→16:15)
[2019-10-26] MEDS: ASPIRIN 81MG TABLET PO SCH ×2 (08:53→16:15)
[2019-10-26] MEDS ORDERED: ASPIRIN 325MG TABLET PO SCH (09:00)
[2019-10-26] MEDS ORDERED: CLOPIDOGREL 75MG TABLET PO SCH (09:00)
[2019-10-26] MEDS: BUDESONIDE 0.5MG/2ML NEB HHN SCH (09:28)
[2019-10-26 09:43] LABS: PLATELET ESTIMATE NORMAL
[2019-10-26] MEDS ORDERED: ASPI-1158 MT (11:44)
[2019-10-26] MEDS ORDERED: REV20 MT (11:44)
[2019-10-26] MEDS ORDERED: GABA-531 MT (11:44)
[2019-10-26] MEDS ORDERED: CLOP75TA4 MT (11:44)
== END 2019-10-26 18:31 | disposition home health service (06) | DRG 252 ==
LOC: ER 08:52 → 5WST 12:10 → EDBEDREQ 12:17 → EDBEDREQTM 12:17 → ENRESERV 13:54 → 3WST 10-25 11:03
PROVIDERS: ADMIT Internal Medicine; ATTEND Internal Medicine
PROC: 5A09357 Assistance with Respiratory Ventilation, Less than 24 Consecutive Hours, Continuous Positive Airway Pressure (ICD-10-PCS; 2019-10-24)
PROC: 047K3DZ Dilation of Right Femoral Artery with Intraluminal Device, Percutaneous Approach (ICD-10-PCS; principal; 2019-10-25)
PROC: B41G1ZZ Fluoroscopy of Left Lower Extremity Arteries using Low Osmolar Contrast (ICD-10-PCS; 2019-10-25)
PROC: B41F1ZZ Fluoroscopy of Right Lower Extremity Arteries using Low Osmolar Contrast (ICD-10-PCS; 2019-10-25)
DX: T82.856A Stenosis of peripheral vascular stent, initial encounter (principal); I50.23 Acute on chronic systolic (congestive) heart failure; J96.20 Acute and chronic respiratory failure, unspecified whether with hypoxia or hypercapnia; E44.0 Moderate protein-calorie malnutrition; I42.9 Cardiomyopathy, unspecified; I31.3 Pericardial effusion (noninflammatory); I70.203 Unspecified atherosclerosis of native arteries of extremities, bilateral legs; I11.0 Hypertensive heart disease with heart failure; J44.9 Chronic obstructive pulmonary disease, unspecified; I08.2 Rheumatic disorders of both aortic and tricuspid valves; F17.210 Nicotine dependence, cigarettes, uncomplicated; E78.00 Pure hypercholesterolemia, unspecified; I87.2 Venous insufficiency (chronic) (peripheral); I27.81 Cor pulmonale (chronic); E78.5 Hyperlipidemia, unspecified; Y83.1 Surgical operation with implant of artificial internal device as the cause of abnormal reaction of the patient, or of later complication, without mention of misadventure at the time of the procedure; E89.0 Postprocedural hypothyroidism; I27.20 Pulmonary hypertension, unspecified; I50.813 Acute on chronic right heart failure; I45.10 Unspecified right bundle-branch block; Z79.52 Long term (current) use of systemic steroids; Z99.81 Dependence on supplemental oxygen; Z82.49 Family history of ischemic heart disease and other diseases of the circulatory system; Z79.899 Other long term (current) drug therapy; Z68.24 Body mass index [BMI] 24.0-24.9, adult; Z71.6 Tobacco abuse counseling; Y92.89 Other specified places as the place of occurrence of the external cause
CPT/HCPCS: 36415; 36600; 37226; 71045; 72191; 73706; 75710; 80048; 80053; 80061; 81003; 82375; 82550; 82553; 82805; 83735; 83880; 84443; 84484; 85025; 85347; 85379; 93005; 93306; 94640; 96372; 99291; C1725; C1726; C1769; C1876; C1887; C1893; C1894; J1644; J1650; J1940; J2250; J3010; J3490; J7620; J7626; Q9967